=== PATIENT | male | born 1980 | race Two or more races ===

== ENCOUNTER 2019-04-13 01:52 | Emergency (ER) | payer SELFPAY ==
[~2019-04-13] VITALS: Ht 175.3 cm; Wt 128.2 kg
[2019-04-13 01:57] VITALS: BP 171/98
[2019-04-13] MEDS ORDERED: LISINOPRIL PO (02:02)
[2019-04-13] MEDS ORDERED: CANA100T PO (02:02)
[2019-04-13] MEDS ORDERED: CHOLESTEROL MED PO (02:02)
[2019-04-13] MEDS ORDERED: METF500T17 PO (02:02)
--- NOTE | 2019-04-13 02:08 | NUR ---
Pt ambulated to room from triage.
[2019-04-13] MEDS ORDERED: OFLOXACIN EAR DROPS 0.3%, 5ML OTIC ONE (02:30)
[2019-04-13] MEDS ORDERED: IBUPROFEN 200 MG TABLET PO ONE (02:30)
[2019-04-13] MEDS ORDERED: ACETAMINOPHEN 500 MG TABLET PO ONE (02:30)
[2019-04-13] MEDS ORDERED: ACETAMINOPHEN 500 MG TABLET ONE (02:31)
[2019-04-13] MEDS ORDERED: IBUPROFEN 600 MG TABLET ONE (02:31)
== END 2019-04-13 03:07 | disposition home or self-care (01) ==
LOC: ED 02:56
DX: H60.11 Cellulitis of right external ear (principal); E11.9 Type 2 diabetes mellitus without complications
CPT/HCPCS: 99284